=== PATIENT | male | born 1990 | race Caucasian/White ===

== ENCOUNTER 2021-02-14 08:22 | Day surgery (SDC) | payer BC ==
[~2021-02-14] VITALS: Ht 182.9 cm; Wt 77.3 kg
[2021-02-14] VITALS (8 sets, daily range): BP systolic 121–146; BP diastolic 64–78; PULSE 61–83; TEMP 98.4–99
[2021-02-14] MEDS ORDERED: NORCO 325 MG-51 TAB PO ×2 (10:26→11:31)
--- NOTE | 2021-02-14 12:20 | NUR ---
Patient returns to room 2 per cart accompanied by Sylvia TENORIO and arouses to verbal stimuli. Temp 98.7 and room air sats 97%. IV fluids infusing and site is free of redness or swelling. Exofin skin glue covering the incisions x3 on abdomen with wound edges well approximated. Siderails up x2 and call light in reach. Spouse in room and talking with the patient. Sipping on Gingerale.
--- NOTE | 2021-02-14 12:35 | NUR ---
Resting with eyes closed when not disturbed.
--- NOTE | 2021-02-14 12:50 | NUR ---
Continues to sip on Gingerale and denies pain or nausea when asked.
--- NOTE | 2021-02-14 13:05 | NUR ---
Talking with spouse and offers no complaints to nurse.
--- NOTE | 2021-02-14 13:20 | NUR ---
Resting and talking with spouse. Continues to deny pain or nausea.
--- NOTE | 2021-02-14 13:50 | NUR ---
Has been drinking gingerale and denies nausea. Wishes to eat at home due to Celiac disease.
--- NOTE | 2021-02-14 13:57 | NUR ---
IV to INT and patient assisted up to the bathroom. Gait is steady and patient is able to void and returns to room. Tolerated the activity well.
--- NOTE | 2021-02-14 14:13 | NUR ---
Dismissal instructions given and voices understanding of these. Provided office number for questions and concerns. Follow up appointment made and given. INT needle discontinued and site is free of redness. Dressed and ready for discharge.
--- NOTE | 2021-02-14 14:15 | NUR ---
Patient dismissed to home driven by spouse and taken per wheelchair to the front door and assisted into vehilce with dismissal instructions in hand.
== END 2021-02-14 14:15 | disposition home or self-care (01) ==
LOC: SDCO 08:22
DX: K40.90 Unilateral inguinal hernia, without obstruction or gangrene, not specified as recurrent (principal); Z20.822 Contact with and (suspected) exposure to COVID-19; Z79.899 Other long term (current) drug therapy
CPT/HCPCS: C1781; J0690; J1100; J1885; J2405; J2704; J3010; J7120